=== PATIENT | male | born 1950 | race Caucasian/White ===

== ENCOUNTER 2022-07-21 12:28 | Outpatient (CLI) | payer OTHER ==
[2022-07-21 13:08] LABS: Bilirubin Neg (Negative); Blood, Urine 10 (Negative); Clarity Clear (Clear); Glucose, Urine (Dipstick) Normal (Negative); Ketone, Urine Negative (Negative); Leukocyte Negative (Negative); Nitrite Negative (Negative); Protein, Urine (Dipstick) Negative (Neg-Trace); Specific Gravity, Urine 1.015 (1.005-1.030); Urobilinogen Normal mg/dL (Less than 2)
[2022-07-21 13:27] LABS: Bacteria/HPF None Seen HPF (None Seen); RBC/HPF 0-3 HPF (0-3); Squamous Epithelial None Seen HPF (0-3); WBC/HPF None Seen HPF (0-3)
[2022-07-21 13:43] LABS: Hemoglobin 15.3 g/dL (13.5-17.5); Mean Corpuscular HGB CONC 35.8 g/dL (32.0-36.0); Mean Corpuscular Hemoglobin 33.3 pg (27.0-33.0); Mean Corpuscular Volume 92.8 fl (81.2-95.1); Mean Platelet Volume 9.9 fl (7.4-10.4); Platelet Count 203 10x3/uL (150-450); RBC Distribution Width 11.9 % (11.5-14.5); White Blood Cell (WBC) Count 7.3 10x3/uL (3.5-10.5)
[2022-07-21 14:01] LABS: PTT 25.6 sec (22.0-33.0); Prothrombin Time 10.9 sec (9.5-12.1)
[2022-07-21 14:06] LABS: Anion Gap 14 mmol/L (10-20); BUN (Urea Nitrogen) 17 mg/dL (8.4-25.7); Calc. Creatinine Clearance 0 mL/min (70-130); Carbon Dioxide 24 mmol/L (23-31); Chloride 101 mmol/L (98-107); Estimated GFR 89; Glucose 100 mg/dL (83-110); Potassium 4.9 mmol/L (3.5-5.1); Sodium 134 mmol/L (136-145)
== END 2022-07-21 12:29 | disposition home or self-care (01) ==
LOC: LABBT 12:28
PROVIDERS: ATTEND Urology
DX: Z01.818 Encounter for other preprocedural examination (principal); N40.1 Benign prostatic hyperplasia with lower urinary tract symptoms; R31.0 Gross hematuria; J84.10 Pulmonary fibrosis, unspecified; N13.8 Other obstructive and reflux uropathy
CPT/HCPCS: 80048; 81001; 85027; 85610; 85730; 87086; 93005; 93010